=== PATIENT | female | born 1970 | race Caucasian/White ===

== ENCOUNTER 2019-01-16 06:31 | Emergency (ER) | payer OTHER ==
[~2019-01-16] VITALS: Ht 165.1 cm; Wt 82.6 kg
[~2019-01-16 06:31] MED LIST: FLEXERIL PO; HYDROCODONE-AP1 EAC6 PO; MEDROLDOSEPACK PO; MELOXICAM7.5 MG; MOBIC15 MG PO; NORCO 5-325 TA1 EACH PO; PROTONIX40 M1; RANITIDINE 150150 M1 PO; REQUIP1 MG PO; TESSALON PERLE100 MG PO; TRAMADOL 50 MG50 MG PO; VENTOLIN HFA 1818 GM INH
[2019-01-16] MEDS ORDERED: PRILOSEC (06:45)
[2019-01-16 06:50] LABS: URINE BILIRUBIN NEGATIVE (Negative); URINE BLOOD TRACE (Negative); URINE CLARITY CLEAR; URINE COLOR DARK YELLOW; URINE GLUCOSE-RANDOM NEGATIVE (Negative); URINE KETONES TRACE (Negative); URINE LEUKOCYTES-REFLEX NEGATIVE (Negative); URINE NITRITE-REFLEX NEGATIVE (Negative); URINE PROTEIN NEGATIVE (Negative); URINE SPECIFIC GRAVITY >= 1.030 (1.005-1.030); URINE UROBILINOGEN 0.2 E.U./dl (0.2-1.0)
[2019-01-16 07:00] LABS: ABSOLUTE BASOPHILS 0.1 thou/uL (0.0-0.2); ABSOLUTE EOSINOPHILS 0.5 thou/uL (0.0-0.7); ABSOLUTE LYMPHOCYTES 2.5 thou/uL (0.8-5.3); ABSOLUTE NEUTROPHILS 13.4 thou/uL (1.6-8.1); BASOPHILS 0.6 %; HEMOGLOBIN 15.4 gm/dL (12.0-15.0); LYMPHOCYTES 14.2 %; MCHC 34.3 g/dL (28.0-37.0); MCV 90.4 fL (80.0-100.0); MONOCYTES 5.5 %; MPV 6.9 fl. (7.2-11.1); NUCLEATED RBCS 0 /100WBC; PLATELET COUNT* 439 thou/uL (150-400); POLYS 76.7 %; RBC 4.98 mil/uL (4.20-5.00); RDW-CV 13.1 % (10.5-14.5); WBC 17.5 thou/uL (4.0-11.0)
[2019-01-16 07:15] LABS: ALBUMIN 4.3 g/dL (3.4-5.0); POTASSIUM 4.7 mmol/L (3.5-5.1); TOTAL BILIRUBIN 0.2 mg/dL (<0.1-1.0); TOTAL PROTEIN 8.6 g/dL (6.4-8.2)
[2019-01-16] MEDS ORDERED: LOMOTIL TABLET1 EACH PO (08:48)
[2019-01-16] MEDS ORDERED: HYDROCODON-ACE1 EAC7 PO (08:48)
[2019-01-16 08:50] VITALS: BP 110/66
== END 2019-01-16 08:58 | disposition home or self-care (01) ==
LOC: M.ERS 06:31
PROVIDERS: Emergency Medicine
DX: R19.7 Diarrhea, unspecified (principal); R10.9 Unspecified abdominal pain; F17.210 Nicotine dependence, cigarettes, uncomplicated; K21.9 Gastro-esophageal reflux disease without esophagitis; G25.81 Restless legs syndrome; M19.90 Unspecified osteoarthritis, unspecified site; Z88.5 Allergy status to narcotic agent; Z90.49 Acquired absence of other specified parts of digestive tract

== ENCOUNTER 2020-05-24 10:20 | Emergency (ER) | payer OTHER ==
[~2020-05-24] VITALS: Ht 165.1 cm; Wt 90.7 kg
[~2020-05-24 10:20] MED LIST changes: +HYDROCODON-ACE1 EAC7 PO; +LOMOTIL TABLET1 EACH PO; +PRILOSEC
[2020-05-24] MEDS ORDERED: PROAIR HFA8.5 GM INH (10:36)
[2020-05-24] MEDS ORDERED: OMEPRAZOLE40 MG PO (10:36)
[2020-05-24] MEDS ORDERED: SINGULAIR5 MG PO (10:36)
[2020-05-24] MEDS ORDERED: CHANTIX1 EACH PO (10:37)
[2020-05-24] MEDS ORDERED: NAPROSYN500 MG PO (11:35)
[2020-05-24] MEDS ORDERED: MEDROLDOSEPACK PO (11:35)
[2020-05-24] MEDS ORDERED: NORCO 5-325 TA1 EAC2 PO (11:35)
[2020-05-24 11:48] VITALS: BP 138/77
== END 2020-05-24 11:49 | disposition home or self-care (01) ==
LOC: M.ERS 10:20
DX: M25.421 Effusion, right elbow (principal); K21.9 Gastro-esophageal reflux disease without esophagitis; M19.90 Unspecified osteoarthritis, unspecified site; F17.210 Nicotine dependence, cigarettes, uncomplicated; Z90.49 Acquired absence of other specified parts of digestive tract; Z98.51 Tubal ligation status; Z88.6 Allergy status to analgesic agent